=== PATIENT | female | born 1975 | race Caucasian/White ===

== ENCOUNTER → 2020-06-04 | Outpatient (CLI) | payer OTHER ==
[~2020-06-04] MED LIST: ACET500T68 PO; ELDERBERRY GUMMIES PO; MULT-735 PO; VITA1TAB31 PO; ZINC50TA39 PO
== END ==
LOC: LAB 12:18
PROVIDERS: ATTEND Surgery
DX: Z01.812 Encounter for preprocedural laboratory examination (principal); U07.1 COVID-19; K82.0 Obstruction of gallbladder
CPT/HCPCS: U0003

== ENCOUNTER → 2020-06-25 | Outpatient (CLI) | payer OTHER | LOC: LAB 08:24 | PROVIDERS: ATTEND Surgery | DX: Z01.812 Encounter for preprocedural laboratory examination (principal); K82.9 Disease of gallbladder, unspecified; Z20.828 Contact with and (suspected) exposure to other viral communicable diseases | CPT/HCPCS: U0003 ==

== ENCOUNTER 2020-06-27 08:34 | Day surgery (SDC) | payer OTHER ==
[~2020-06-27] VITALS: Ht 162.6 cm; Wt 103.0 kg
[~2020-06-27 08:34] MED LIST changes: +ACETAMINOPHEN 500 MG TABLET PO PRN; +BUPIVACAINE-EPI 0.25%-1:200000 MPF 30 ML VIAL. INJ ONE; +HYDROmorphone 2 MG/ML VIAL IV PRN; +IV RINGERS,LACTATED 1000ML 1,000 ML IV SCH; +MORPHINE SULFATE 2 MG/ML VIAL. IV PRN; +ONDANSETRON PF 4 MG/2 ML VIAL. IV PRN; +PROCHLORPERAZINE 10 MG/2 ML VIAL. IV PRN; +fentaNYL PF VIAL 100 MCG/2 ML VIAL IV PRN
[2020-06-27] MEDS ORDERED: ONDANSETRON PF 4 MG/2 ML VIAL. ONE (08:46)
[2020-06-27] MEDS ORDERED: MIDAZOLAM HCL/PF 2 MG/2 ML VIAL. ONE (08:46)
[2020-06-27] MEDS ORDERED: fentaNYL PF VIAL 100 MCG/2 ML VIAL ONE ×2 (08:46→10:10)
[2020-06-27] MEDS ORDERED: LIDOCAINE 2% PF 5 ML VIAL. ONE (08:46)
[2020-06-27] MEDS ORDERED: DEXAMETHASONE SOD PHOS 4 MG/ML VIAL ONE ×2 (08:46→10:05)
[2020-06-27] MEDS ORDERED: PROPOFOL 10 MG/ML (20ML) VIAL. IV ONE ×2 (08:46→10:11)
[2020-06-27] MEDS ORDERED: ROCURONIUM 50 MG/5 ML VIAL. ONE (08:46)
--- NOTE | 2020-06-27 09:16 | PDOC1 ---
History and Physical Date of Admission Date of Admission DATE: 06/27/20 TIME: 09:12 Identification/Chief Complaint Chief Complaint Right upper quadrant abdominal pain Source Source: Chart review, Patient History of Present Illness History of Present Illness 45-year-old female recently hospitalized for Covid at that time was having symptomatic cholelithiasis she subsequently has tested negative for Covid having no symptoms Past Medical History Cardiovascular: No pertinent hx Pulmonary: No pertinent hx GI: No pertinent hx Heme/Onc: No pertinent hx Hepatobiliary: No pertinent hx Psych: No pertinent hx Rheumatologic: No pertinent hx Infectious disease: No pertinent hx ENT: No pertinent hx Renal/: No pertinent hx Endocrine: No pertinent hx Dermatology: No pertinent hx Past Surgical History Past Surgical History: No pertinent history Family History Family History: No Significant Social History Smoke: No ALCOHOL: none Drugs: None Current Medications Current Medications Current Medications Bupivacaine HCl/ Epinephrine Bitart (Sensorcaine-Epi 0.25%-1:[id number] Mpf) 30 ml 1X ONCE INJ ; Start 06/27/20 at 06:00; Stop 06/27/20 at 06:01; Status DC Ondansetron HCl (Zofran) 4 mg PRN Q6HRS PRN IV NAUSEA/VOMITING; Start 06/27/20 at 07:00; Stop 06/28/20 at 06:59 Fentanyl Citrate (Fentanyl 2ml Vial) 25 mcg PRN Q5MIN PRN IV MILD PAIN 1-3; Start 06/27/20 at 07:00; Stop 06/28/20 at 06:59 Fentanyl Citrate (Fentanyl 2ml Vial) 50 mcg PRN Q5MIN PRN IV MODERATE TO SEVERE PAIN; Start 06/27/20 at 07:00; Stop 06/28/20 at 06:59 Morphine Sulfate (Morphine Sulfate) 1 mg PRN Q10MIN PRN IV SEVERE PAIN 7-10; Start 06/27/20 at 07:00; Stop 06/28/20 at 06:59 Ringer's Solution 1,000 ml @ 30 mls/hr Q24H IV ; Start 06/27/20 at 07:00; Stop 06/27/20 at 18:59 Hydromorphone HCl (Dilaudid) 0.5 mg PRN Q10MIN PRN IV SEV PAIN, Second choice; Start 06/27/20 at 07:00; Stop 06/28/20 at 06:59 Prochlorperazine Edisylate (Compazine) 5 mg PACU PRN PRN IV NAUSEA, MRX1; Start 06/27/20 at 07:00; Stop 06/28/20 at 06:59 Acetaminophen (Tylenol) 1,000 mg 1X PREOP PRN PO PRIOR TO PROCEDURE; Start 06/27/20 at 06:00 Cefazolin Sodium/ Dextrose 50 ml @ 100 mls/hr 1X PREOP PRN IV PRIOR TO PROCEDU RE; Start 06/27/20 at 06:00; Stop 06/27/20 at 18:00 Lidocaine HCl (Lidocaine Pf 2% Vial) 5 ml STK-MED ONCE .ROUTE ; Start 06/27/20 at 08:46; Stop 06/27/20 at 08:46; Status DC Propofol (Diprivan) 200 mg STK-MED ONCE IV ; Start 06/27/20 at 08:46; Stop 06/27/20 at 08:46; Status DC Ondansetron HCl (Zofran) 4 mg STK-MED ONCE .ROUTE ; Start 06/27/20 at 08:46; Stop 06/27/20 at 08:46; Status DC Dexamethasone Sodium Phosphate (Decadron) 4 mg STK-MED ONCE .ROUTE ; Start 06/27/20 at 08:46; Stop 06/27/20 at 08:46; Status DC Rocuronium [place] (Zemuron) 50 mg STK-MED ONCE .ROUTE ; Start 06/27/20 at 08:46; Stop 06/27/20 at 08:46; Status DC Fentanyl Citrate (Fentanyl 2ml Vial) 100 mcg STK-MED ONCE .ROUTE ; Start 06/27/20 at 08:46; Stop 06/27/20 at 08:47; Status DC Midazolam HCl (Versed) 2 mg STK-MED ONCE .ROUTE ; Start 06/27/20 at 08:46; Stop 06/27/20 at 08:47; Status DC Active Scripts Active Reported Acetaminophen 500 Mg Tablet 1 Tab PO PRN Q6HRS PRN D3 + K2 Dots 1,000 Units Tab (Vitamin D3/Vitamin K2) 1 Each Tab.rapdis 1 Tab PO DAILY 30 Days One-Daily Multi-Vitamin (Multivitamin) 1 Each Tablet 1 Tab PO DAILY 30 Days Zinc 50 Mg Tablet 150 Mg PO DAILY [elderberry gummies] 2 Tab.chew PO 2-3XD PRN Allergies Allergies: Coded Allergies: No Known Drug Allergies (Unverified , 06/27/20) ROS Gastrointestinal: Yes Abdominal Pain Physical Exam General: Alert, Oriented X3, Cooperative, No acute distress HEENT: Atraumatic, EOMI Lungs: Clear to auscultation, Normal air movement Heart: RRR, no murmurs Abdomen: Normal bowel sounds, Soft, Other (Tender palpation right upper quadrant) Rectal Exam: not examined Extremities: No edema Skin: No significant lesion Neuro: Normal speech Psych/Mental Status: Mental status NL Images Images Ultrasound right upper quadrant showing gallstones VTE Prophylaxis Ordered VTE Prophylaxis Devices: Yes VTE Pharmacological Prophylaxi: Contraindicated Assessment/Plan Assessment/Plan Symptomatic cholelithiasis plan laparoscopic cholecystectomy Justifications for Admission Other Justification VELVET REAVES MD Jun 27, 2020 09:15
[2020-06-27] MEDS ORDERED: IOHEXOL 300 MG/ML 50 ML VIAL. ONE (09:26)
[2020-06-27] MEDS ORDERED: SURGICEL HEMOSTAT 4X8 EACH. ONE (09:27)
[2020-06-27] MEDS ORDERED: FAMOTIDINE 20 MG/2 ML VIAL ONE (10:09)
[2020-06-27] MEDS ORDERED: KETOROLAC 30 MG/ML VIAL. ONE (10:26)
[2020-06-27] MEDS ORDERED: GLYCOPYRROLATE 1 MG/5 ML VIAL. ONE (10:29)
[2020-06-27] MEDS ORDERED: NEOSTIGMINE METHYLSULFATE 5 MG/5 ML SYRINGE. ONE (10:29)
--- NOTE | 2020-06-27 10:31 | PDOC4 ---
Operative Note Operative Note Date: 06/27/2020 at 1030 Preoperative diagnosis: Symptomatic cholelithiasis Postoperative diagnosis: Same Procedure: Laparoscopic cholecystectomy Surgeon: Alessandro Specimen: Gallbladder Dictation: Patient is 45-year-old female with right upper quadrant abdominal pain ultrasound showing gallstones. Procedure of laparoscopic cholecystectomy was explained to the patient detail was benefits were also discussed including bleeding infection injury to intra-abdominal contents possible necessitating further or open operations alternatives to this procedure also discussed with the patient who seemed to understand and gave both verbal and written consent to have the procedure performed. Patient was taken to the operating room placed in the supine position general anesthesia was initiated once patient was sleeping intubated her abdomen was prepped and draped usual sterile fashion using ChloraPrep. An area just below the umbilicus was injected quarter percent Marcaine with epinephrine incision was made 11 blade scalpel and a varies needle was placed within the abdomen creating pneumoperitoneum once this was complete 11 mm port was placed and a 5 mm camera was placed within the abdomen which was inspected no other ab maladies were noted 5 mm port was placed in the epigastrium a 5 mm port was placed in the right midabdomen and a 5 mm port was placed in the right lateral abdomen. The dome of the gallbladder is grasped retracted cephalad the infundibulum the gallbladder is grasped retracted laterally exposing the triangle of adherent tissues the triangle were taken down with blunt dissection exposing the cystic duct and cystic artery both were doubly clipped and transected the gallbladder was taken off the liver with hook electrocautery placed in the Endo Catch bag removed and the umbilicus the right upper quadrant was irrigated and suctioned dry hemostasis deemed to be appropriate the pneumoperitoneum was reduced all ports were removed the fascial defect at the umbilicus was closed with a [id number] 0 Vicryl suture the skin was reapproximated all port sites for subcuticular Monocryl Mastisol Steri- Strips and island dressings were applied. Patient was awakened and extubated in the operating room taken to recovery in stable condition all sponge instrument needle counts listed as correct estimated blood loss 5 mL VELVET REAVES MD Jun 27, 2020 10:31
--- NOTE | 2020-06-27 10:32 | DISCH ---
DISCHARGE INSTRUCTIONS Condition on Discharge Condition on Discharge: Stable Activity After Discharge Activity Instructions for Disc: Avoid exertion Other activity instructions: No lifting more than 20 pounds for 2 weeks Diet after Discharge Diet after Discharge: Low Fat Wound Incision Care Other wound/incision instructi: May shower in 24 hours Contacting the after DC Call your doctor for: If your condition worsens Follow-Up Follow up with: Dr. Reaves in 2 weeks VELVET REAVES MD Jun 27, 2020 10:32
[2020-06-27] MEDS ORDERED: SEVOFLURANE 61 TO 120 MINUTES. IH ONE (10:34)
[2020-06-27] MEDS ORDERED: oxyCODONE/APAP 5/325 1 TAB TABLET PO ONE ×2 (11:15)
[2020-06-27] MEDS ORDERED: oxyCODONE/APAP 5/325 1 TAB TABLET ONE (11:16)
[2020-06-27 11:30] VITALS: BP 115/41
== END 2020-06-27 12:00 | disposition home or self-care (01) ==
LOC: SURG 08:34
PROVIDERS: ATTEND Surgery
DX: K80.20 Calculus of gallbladder without cholecystitis without obstruction (principal); F41.9 Anxiety disorder, unspecified; F32.9 Major depressive disorder, single episode, unspecified; F17.210 Nicotine dependence, cigarettes, uncomplicated; E66.9 Obesity, unspecified; Z68.39 Body mass index [BMI] 39.0-39.9, adult; Z87.01 Personal history of pneumonia (recurrent); Z72.89 Other problems related to lifestyle; Z87.442 Personal history of urinary calculi; Z98.890 Other specified postprocedural states
CPT/HCPCS: 47562; 81025; J0690; J1100; J1885; J2250; J2405; J2704; J2710; J3010; J3490; J7120; Q9967